=== PATIENT | male | born 2000 ===

== ENCOUNTER 2022-02-13 03:51 | Emergency (ER) | payer BC, SELFPAY ==
[2022-02-13 03:58] VITALS: BP 163/101; PULSE 133; RESP 20; TEMP 37.1; O2SAT 100
--- NOTE | 2022-02-13 03:58 | ECG_ITS ---
Measurements Intervals [place] Rate: 127 P: 77 RI: 154 QRS: 81 QRSD: 102 T: 72 QT: 306 QTc: 446 Interpretive Statements SINUS TACHYCARDIA INCOMPLETE RIGHT BUNDLE BRANCH BLOCK BORDERLINE ECG NO PREVIOUS ECG AVAILABLE FOR COMPARISON Electronically Signed On 02-14-2022 10:56:08 CDT by Shawn Scanlon M.D.
[2022-02-13] MEDS: SODIUM CHLORIDE 0.9% IV 1,000 ML 999 ML IV CONT ×2 (04:30→06:03)
--- NOTE | 2022-02-13 04:31 | ED.GENADULT ---
HPI - General Adult General Chief complaint: Psychiatric Symptoms <Jann Krishna MD - Last Filed: 02/13/22 21:06> Stated complaint: Manic episode, coming off medications , cp <Jann Krishna MD - Last Filed: 02/13/22 21:06> Time Seen by Provider: 02/13/22 03:55 <Jann Krishna MD - Last Filed: 02/13/22 21:06> Source: patient, family, RN notes reviewed and old records reviewed <Jann Krishna MD - Last Filed: 02/13/22 21:06> Mode of arrival: ambulatory <Jann Krishna MD - Last Filed: 02/13/22 21:06> Limitations: no limitations <Jann Krishna MD - Last Filed: 02/13/22 21:06> History of Present Illness HPI narrative: 21-year-old male history of bipolar disorder presenting to the emergency department for evaluation of insomnia. I believe the patient is currently in a manic phase. This has been ongoing for the last few days. They state the patient has been attempting to sleep but that he has been unsuccessful. Patient has been following up with his primary care physician and they were attempting to readjust his medications. Patient is trying to get off of the Cymbalta and the nurse practitioner wants to transition him to an SSRI. Patient states he has been on SSRIs previously and does not want them at this time. Patient's primary complaint at this time is agitation and sleep deprivation. Patient denies any recreational drug use and specifically denies any use of methamphetamine and cocaine. Patient had previously been on Adderall but stopped this approximately 6 months ago in order to help himself gain weight. <Jann Krishna MD - Last Filed: 02/13/22 21:06> Related Data Allergies/adverse reactions: Allergies Allergy/AdvReac Type Severity Reaction Status Date / Time No Known Allergies Allergy Verified 01/31/22 07:49 <Jann Krishna MD - Last Filed: 02/13/22 21:06> PMF Past Medical History Medical History: Medical History Adult BMI 19-24 kg/sq m Body mass index (BMI) less than 20 Body mass index (BMI) of less than 5th percentile for age in patient 18 years to less than 21 years of age COVID Depression with anxiety Popping sound of knee joint Rash of neck Sore throat <Jann Krishna MD - Last Filed: 02/13/22 21:06> Family History Family History: Family History Father No problems noted. Mother Acute myocardial infarction Sibling No problems noted. 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 Patient has not yet slept yet. Patient's heart rate has improved with rehydration. At this time patient is medically cleared to be evaluated by the crisis counselor and patient is medically cleared for inpatient psychiatric placement if needed. Patient and family were updated on the plan for crisis evaluation. At time of sign out to Dr Mensah the crisis counselor evaluation is pending. <Jann Krishna MD - Last Filed: 02/13/22 21:06> Patient is currently calm, asymptomatic and ready to go home, crisis counselor indicated that patient can go home with safety plan, the patient and his mom agreed. <Chet Mensah MD - Last Filed: 02/13/22 07:22> Date: 02/13/22 <Chet Mensah MD - Last Filed: 02/13/22 07:22> Time: : <Chet Mensah MD
[2022-02-13] MEDS: LORazepam INJ (*CRX) 2 MG/ML VIAL 1 MG IV PUSH (04:39)
[2022-02-13 05:02] LABS: Basophils Percent Auto 0.3 % (0.2-1.2); Eosinophils Percent Auto 0.2 % (0-4.4); Hematocrit 40.4 % (42.0-52.0); Hemoglobin 13.7 g/dL (14.0-18.0); Immature Granulocyte Absolute 0.05 K/mm3 (0.00-0.031); Immature Granulocyte Percent A 0.5 % (0-0.5); Lymphocytes Absolute Auto 2.27 K/mm3 (0.9-3.2); Lymphocytes Percent Auto 20.9 % (18.3-44.2); Mean Corpuscular HGB Conc 33.9 g/dl (32-36); Mean Corpuscular Hemoglobin 30.9 pg (26-34); Monocytes Absolute Auto 1.4 K/mm3 (0.1-0.6); Monocytes Percent Auto 13.1 % (2.6-8.5); Neutrophils Absolute Auto 7.1 K/mm3 (1.3-6.7); Platelet Count Result 380 k/mm3 (150-375); Red Blood Count 4.44 M/mm3 (4.6-6.20); Red Cell Distribution Width 13.7 % (11.5-14.5); White Blood Count 10.9 K/mm3 (4.5-10.0)
[2022-02-13 05:05] VITALS: BP 134/71; PULSE 61; RESP 18; O2SAT 95
[2022-02-13 05:13] LABS: Acetaminophen < 10 ug/mL (10-30); Ethanol < 10 mg/dL (<10); Salicylate < 1.0 mg/dL (2-20)
[2022-02-13 05:14] LABS: Alanine Aminotransferase 106 U/L (4-50); Albumin Level 4.2 g/dL (3.5-5.1); Alkaline Phosphatase 93 U/L (38-126); Anion Gap 8 mmol/L (8-16); Aspartate Amino Transferase 71 U/L (17-59); Bilirubin,Total 0.7 mg/dL (0.2-1.3); Blood Urea Nitrogen 18 mg/dL (9-20); Calcium 8.7 mg/dL (8.4-10.2); Carbon Dioxide 30 mmol/L (22-30); Chloride 102 mmol/L (98-107); Estimated CRCL calculation 127 ml/min; Estimated Glomerular Filt Rate > 60; Glucose 123 mg/dL (65-110); Potassium 3.4 mmol/L (3.4-5.0); Sodium 140 mmol/L (137-145)
[2022-02-13 05:34] LABS: Appearance Urine Clear (Clear); Bilirubin Urine Negative (Negative); Blood Urine Negative (Negative); Color Urine Yellow (Yellow); Glucose Urine UA Negative (Negative); Ketones Urine 1+ mg/dL (Negative); Leukocyte Esterase Ur Negative LEU/UL (Negative); Nitrate Urine Negative (Negative); Protein Urine Negative (Negative); Urobilinogen Urine 0.2 mg/dL (<2.0)
[2022-02-13 05:38] LABS: Add Urine Microscopic? YES
[2022-02-13 05:39] LABS: Amorphous Sediment Urine Few; Bacteria Urine Trace /hpf; Mucus Urine Rare /lpf; RBC Urine 0-2 /hpf (0-2); WBC Urine 0-3 /hpf
[2022-02-13 05:44] LABS: Thyroid Stimulating Hormone 0.982 uIU/mL (0.465-4.680)
--- NOTE | 2022-02-13 05:46 | PC.NURSE ---
Per ED MD Dr. Krishna pt is medically cleared.
--- NOTE | 2022-02-13 05:50 | PC.NURSE ---
Crisis instructed this RN to call [facility] first, and if pt gets denied, THEN contact Crisis. Currently on hold c [facility].
--- NOTE | 2022-02-13 05:52 | PC.NURSE ---
Addendum entered by Lisa Hassan RN 02/13/22 05:53: ED updated. Original Note: Awaiting call back from [facility].
[2022-02-13 05:53] LABS: Amphetamine Screen Urine Negative (Negative); Barbiturate Screen Urine Negative (Negative); Benzodiazepines Screen Urine Negative (Negative); Cannabinoid Screen Urine Positive (Negative); Cocaine Screen Urine Negative (Negative); Methadone Screen Urine Negative (Negative); Opiate Screen Urine Negative (Negative); Phencyclidine Screen Urine Negative (Negative)
--- NOTE | 2022-02-13 05:57 | PC.NURSE ---
[facility] called this RN back and declined pt. KASH Fleming notified and she will call crisis back.
[2022-02-13 06:02] VITALS: BP 119/63; PULSE 108; RESP 18; O2SAT 98
--- NOTE | 2022-02-13 07:25 | PC.NURSE ---
Took report from midnight nurse, crisis at the room at this time talking with the pt and working on making a safety plan. Pt will go home with a safety plan. Pt mom at bedside.
[2022-02-13 07:36] VITALS: BP 122/70; PULSE 105; RESP 18; O2SAT 100
--- NOTE | 2022-02-13 07:45 | PC.NURSE ---
Sister called reporting she was a licensed therapist. Primary RN was in with another pt and unable to take phone call. This RN took phone call and explained to sister that we are unable to provide any information because she is not listed on his chart, but that he was evaluated and discharged. Sister escalating and stating you guys are doing the wrong thing. I just need you to pass something along. This RN again states I am unable to share any information and that I was going to hang up phone because her verbal aggression was not going to be tolerated. Sister began screaming through phone at this RN, I'm telling you! . This RN hung up phone as conversation was not productive or appropriate due to patient privacy.
== END 2022-02-13 07:40 | disposition home or self-care (01) ==
PROVIDERS: Emergency Medicine; Emergency Provider Emergency Medicine; PCP Family Medicine
DX: F41.8 Other specified anxiety disorders (principal); Z86.16 Personal history of COVID-19; F17.290 Nicotine dependence, other tobacco product, uncomplicated; R00.0 Tachycardia, unspecified; I45.10 Unspecified right bundle-branch block
CPT/HCPCS: 36415; 80053; 80307; 81001; 84443; 85025; 93005; 96361; 96374; 99284; J2060; J7030

== ENCOUNTER 2022-02-14 09:50 | Emergency (ER) | payer BC, SELFPAY ==
[2022-02-14 10:00] VITALS: BP 169/100; PULSE 89; RESP 19; TEMP 36.7; O2SAT 99
--- NOTE | 2022-02-14 11:03 | PC.NURSE ---
Mother states crisis is supposed to call pt today but pt broke his phone. Contacted crisis for pt's mother to give them alternate number to contact pt. Mother then states that she does not need to provide alternate number because they are going to [facility] instead where pt can be evaluated by psychiatrist quicker. Pt ambulated out of emergency department with pt. Left without being seen by provider.
== END 2022-02-15 02:49 | disposition left against medical advice (07) ==
LOC: ANHED 11:44
PROVIDERS: PCP Nurse Practitioner Family
DX: R45.82 Worries (principal)
CPT/HCPCS: 99199